=== PATIENT | male | born 1965 | race Caucasian/White ===

== ENCOUNTER → 2016-08-27 | Outpatient (CLI) | payer BC | END | disposition home or self-care (01) | LOC: C.LABPBG 10:56 | PROVIDERS: ATTEND Urology | DX: N40.1 Benign prostatic hyperplasia with lower urinary tract symptoms (principal); R35.0 Frequency of micturition; R39.198 Other difficulties with micturition ==

== ENCOUNTER 2024-04-21 08:31 | Observation (INO) ==
--- NOTE | 2024-03-22 11:46 | PAT Medication Instructions ---
Medication Instructions Date of Service March 22, 2024 Home Medications tamsulosin 0.4 mg capsule (Flomax) 0.4 mg PO QPM diltiazem HCl 120 mg tablet 120 mg PO QAM buspirone 15 mg tablet 15 mg PO QAM multivitamin 1 tab PO QAM DO NOT take the morning of surgery multivitamin 1 tab PO QAM Take morning of surgery With a small sip of water, OTHERWISE NOTHING TO EAT OR DRINK AFTER MIDNIGHT: diltiazem HCl 120 mg tablet 120 mg PO QAM buspirone 15 mg tablet 15 mg PO QAM Take evening before surgery tamsulosin 0.4 mg capsule (Flomax) 0.4 mg PO QPM Other Notes If you have any questions please call us at [phone] or [phone] or [phone] or [phone]
--- NOTE | 2024-03-28 09:39 | Anesthesiology Consultation ---
Date of Service March 28, 2024 Assessment & Plan (1) Encounter for pre-operative examination: - Outpatient joint assessment: Patient is currently scheduled for inpatient pathway. If re-evaluated and patient/surgeon requests outpatient pathway, patient is acceptable candidate for outpatient joint program from anesthesia standpoint pending surgeon's office assessment of pt motivation/support/completion of same day joint program preop requirements. Chart Review Chart Review: Acceptable Risk for Surgery and Patient seen in Pre Admission Testing Teaching & Discussion Pre-Anesthesia Teaching/Discussion Notes: Instructed NPO after midnight before surgery, except medications with 15 cc of water. Medication instructions provided according to the PAT guidelines. History Surgery Operation Date: 04/21/24 07:00 Proposed Procedures p Left Total Knee Arthroplasty - Rosales Godoy MD Height/Weight Height: 5 ft 11 in Weight: 118.1 kg Allergies Allergy/AdvReac Type Severity Reaction Status Date / Time No Known Allergies Allergy Verified 03/24/24 09:29 Medications Home Medications Medication Instructions Recorded Confirmed Last Taken diltiazem HCl 120 mg tablet 120 mg PO QAM 10/29/23 03/24/24 03/24/24 07:00 buspirone 15 mg tablet 15 mg PO QAM 03/20/24 03/24/24 03/23/24 08:00 multivitamin 1 tab PO QAM 03/20/24 03/24/24 03/18/24 ciprofloxacin HCl 500 mg tablet 500 mg PO BID #6 tabs 03/24/24 Unknown (Cipro) Past Medical History Medical History (Updated 03/28/24 @ 09:44 by Dhara Page PA-C) Anxiety Benign localized prostatic hyperplasia with lower urinary tract symptoms (LUTS) Dyslipidemia Hx, no recent issues per patient Hypertension controlled, stable per pt Left knee DJD Sleep apnea CPAP-compliant Urinary frequency Urinary stream slowing Patient denies h/o stroke, seizures, heart attack, heart failure, DM, blood clots/DVTs or blood transfusions. Exercise / Class Metabolic Activity II 4-5 Yardwork/Stairs/Walk up hill (denies chest discomfort or shortness of breath with one flight of stairs) Past Family History Family History Other No pertinent family history Past Surgical History Surgical History (Updated 03/28/24 @ 09:45 by Dhara Page PA-C) History of esophagogastroduodenoscopy (EGD) History of general anesthesia 2 days after a colonoscopy "had something bleeding and had to go back to hospital and had to go under general anesthesia for another colonoscopy to repair the bleeding" History of transurethral resection of prostate Hx of colonoscopy Nausea after anesthesia following general anesthesia for a colonoscopy Tika with surgeon's office advised urinary catheter is not needed per Dr. Godoy, he is aware of recent TURP. Past Anesthesia History No Hx of Anesthesia Complications and No Family Hx of Anesthesia Complications History of PONV History of PONV and Hx of Motion Sickness Social History Smoking Status: Never smoker Do You Dip or Chew Tobacco: No (quit 2013; advised) Hx Alcohol Use: Yes Alcohol type: beer alcohol intake frequency: a few times a week Hx Substance Use: No substance use type: does not use Review of Systems Patient denies chest pain, shortness of breath, dyspnea on exertion, reflux, fever, chills, cough, wheezing, or palpitations. Physical Exam Vital Signs Vitals BP 149/84 P 61 TEMP 98.5 SP02 95% on RA RESP 18 Physical Patient resting comfortably in chair in no acute distress, alert and oriented, responding appropriately throughout visit Full cervical extension range of motion without pain TMD 3.5 finger breadths Mallampati Score 3 Dentition: intact, denies chipped or loose teeth, caps/crowns, implants or bridges Lungs: normal respiratory effort. Good air movement, clear throughout to auscultation, no adventitious breath sounds Cardiac: regular rate and rhythm, no murmurs noted Carotid arteries: negative bruit bilat Lab Results Anesthesia Preop Results Results Anesthesia Widget: WBC 6.08 K/ul (4.8-10.8) 03/01/24 Hgb 14.1 g/dl (14.0-18.0) 03/01/24 Hct 41.1 % (42.0-52.0) L 03/01/24 Plt 181 K/uL (130-400) 03/01/24 Na 138 mmol/L (136-145) 03/01/24 K 4.3 mmol/L (3.5-5.1) 03/01/24 Cl 105 mmol/L (98-107) 03/01/24 CO2 29 mmol/L (21-32) 03/01/24 BUN 17 mg/dl (6-23) 03/01/24 Creat 0.83 mg/dl (0.6-1.4) 03/01/24 Glucose Level 94 mg/dl (70-99(Fasting)) 03/01/24 PT 11.9 Seconds (9.0-12.0) 03/28/24 PTT 26 Seconds (21-31) 03/28/24 INR 1.1 (0.9-1.1) 03/28/24 Blood Type AB Positive 03/28/24 Antibody Screen NEGATIVE 03/28/24 Testing Electrocardiogram Date: 03/01/24 Sinus bradycardia with occasional premature ventricular complexes, rate 51 bpm Incomplete RBBB Chest X-Ray Date: 03/01/24 Cardiomegaly with no active disease in the chest. Stress Test Date: 07/21/19 Negative for inducible ischemia Moderate cLVH EF 60-65% Grade 2 diastolic dysfunction No significant valvular pathology
--- NOTE | 2024-04-15 09:42 | History & Physical Report ---
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 Is failed conservative measures. He would like to proceed with definitive treatment/knee replacement. Plan: We are going to plan on taking him to the operating room do a left total knee replacement. The risks and benefits of this procedure explained and he understands. Informed consent was obtained. He has had some prostate issues recently. Will just check and make sure that is all cleared up. We will avoid using a Mack catheter but we will likely make sure he is on Flomax. He is plan willy to be discharged to home with some home health. History of Present Illness Chief Complaint: . Persistent left knee pain, discomfort, and swelling. Primary Care Provider: Rosales Jordan . 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 He has a several year history of increasing left knee pain discomfort that he dates back to an episode when he fell from a ladder. He twisted his knee at that time and has had persistent pain discomfort ever since. Is been to extensive conservative treatment including aspiration and injections which only helped for couple days. Is become more debilitated by his pain. He would like to have his left knee fixed. Allergies Allergy/AdvReac Type Severity Reaction Status Date / Time No Known Allergies Allergy Verified 03/24/24 09:29 Home Medications Medication Instructions Recorded Confirmed Type diltiazem HCl 120 mg tablet 120 mg PO QAM 10/29/23 03/24/24 History buspirone 15 mg tablet 15 mg PO QAM 03/20/24 03/24/24 History multivitamin 1 tab PO QAM 03/20/24 03/24/24 History ciprofloxacin HCl 500 mg tablet 500 mg PO BID #6 tabs 03/24/24 Rx (Cipro) Past Med/Surg History Problem List Encounter for pre-operative examination Effusion, left knee Inguinal hernia (Acute) Medical History Benign localized prostatic hyperplasia with lower urinary tract symptoms (LUTS) Left knee DJD Urinary frequency Urinary stream slowing Sleep apnea CPAP-compliant Anxiety Hypertension controlled, stable per pt Dyslipidemia Hx, no recent issues per patient Surgical History History of transurethral resection of prostate Nausea after anesthesia following general anesthesia for a colonoscopy History of general anesthesia 2 days after a colonoscopy "had something bleeding and had to go back to hospital and had to go under general anesthesia for another colonoscopy to repair the bleeding" History of esophagogastroduodenoscopy (EGD) Hx of colonoscopy Family History Other No pertinent family history Social History Smoking Status: Never smoker Tobacco Type: Smokeless Tobacco (Dip or Chew) Second Hand Exposure: No; Do You Dip or Chew Tobacco: No (quit 2013; advised); Hx Alcohol Use: Yes Alcohol type: beer Hx Substance Use: No Preferred Language: Prydeinig Communication Ability: Effective Press Reader Required: No Beliefs That Will Affect Care: None marital status: Current Living Situation: Spouse current occupational status: retired Feels Safe at Home: Yes Assistive Devices: CPAP and Glasses Review of Systems All systems reviewed & are unremarkable except as noted in HPI & below. Physical Exam . Physical examination reveals a fairly large middle-age male. Examination of the knee reveals the patient ambulates with just a slight of a limp he is got varus alignment to his knee. Moderate to large knee joint effusion. Range of motion is 5-1 20. No instability. No particular pain with hip motion. Constitutional WD/WN, vitals as above Respiratory normal respiratory effort, lungs clear to auscultation Cardiovascular RRR, no murmur, no edema Gastrointestinal (Abdomen) normal bowel sounds, soft, nontender, no hepatosplenomegaly Results & Data Results & Data Laboratory Results . Diagnostic Findings . X-rays of the left knee was reviewed. She has advanced left knee DJD. Got complete loss of his medial joint space. Got moderate patellofemoral disease. Fairly large knee joint effusion. PG Care Time/CCT Total # of Minutes Spent Total Time Spent with Patient: Total time spent is greater than 50% in coordination of care (as documented) at patient's floor/unit and/or counseling patient: Coding Level of Care Code None Diagnoses Effusion, left knee M25.462 Encounter for pre-operative examination Z01.818 Left knee DJD M17.12
[~2024-04-21 08:31] MED LIST: BUPIVACAINE 0.5 % 5 MG/1 ML PF 10ML VIAL ONE; ROPIVACAINE 0.5% 5 MG/ML 30 ML VIAL ONE
--- NOTE | 2024-04-21 08:46 | History & Physical Bridge Note ---
Date of Service April 21, 2024 History & Physical Bridge Note I have examined the patient, reviewed the History & Physical and in the interval since the performance of the History & Physical I have noted the following changes of clinical significance: no changes noted
[2024-04-21] MEDS: CeleBREX 200 MG CAP PO SCH (09:07)
[2024-04-21] MEDS: LR 60ML/HR IV SCH (09:07)
[2024-04-21] MEDS: FAMOTIDINE 20 MG TAB PO SCH (09:07)
[2024-04-21] MEDS: ACETAMINOPHEN 500 MG TAB PO SCH ×2 (09:07→17:03)
[2024-04-21] MEDS: METOCLOPRAMIDE HCL 10 MG TABLET PO SCH (09:07)
[2024-04-21] MEDS: LR 500ML BOLUS, THEN 15ML/HR IV SCH (09:27)
[2024-04-21] MEDS ORDERED: MIDAZOLAM HCL 1 MG/ML 2ML VIAL ONE (09:40)
[2024-04-21] MEDS ORDERED: ALBUMIN HUMAN 5% 12.5 GM/250 ML VIAL IV ONE (09:51)
[2024-04-21] MEDS ORDERED: ONDANSETRON INJ 2 MG/ML 2 ML VIAL IV PRN (10:19)
[2024-04-21] MEDS ORDERED: fentaNYL citrate PF 100 MCG/2 ML VIAL IV PRN (10:19)
[2024-04-21] MEDS ORDERED: PROMETHAZINE HCL 6.25 MG in SODIUM CHLORIDE 0.9% 50 ML IV PRN (10:19)
[2024-04-21] MEDS ORDERED: HYDROmorphone INJ 2 MG/ML SYR/VIAL IV PRN (10:19)
[2024-04-21] MEDS ORDERED: ePHEDrine sulfate 50 MG/ML AMP IV PRN (10:19)
[2024-04-21] MEDS ORDERED: ATROPINE SULFATE 0.1 MG/ML 10ML SYR IV PRN (10:19)
[2024-04-21] MEDS ORDERED: ONDANSETRON INJ 2 MG/ML 2 ML VIAL ONE (10:27)
[2024-04-21] MEDS ORDERED: KETAMINE HCL 10MG/ML SYR ONE (10:28)
[2024-04-21] MEDS: ceFAZolin 2000MG 2,000 MG/15 ML SYR IV SCH ×2 (10:46→18:09)
[2024-04-21] MEDS ORDERED: GLYCOPYRROLATE 0.2 MG/ML VIAL ONE (11:19)
[2024-04-21] MEDS ORDERED: PROPOFOL IV EMULSION 10 MG/ML 100 ML VIAL IV ONE ×4 (11:21→12:05)
[2024-04-21] MEDS: TRANEXAMIC ACID 1,000 MG **IV Intra-op IV SCH (11:38)
[2024-04-21] MEDS: ROPIV 0.5% 246mg, Ketorolac 30mg, EPINEPHrine 0.5mg in NSS INFIL SCH (11:40)
[2024-04-21] MEDS: ORTHO JOINT ANESTHETIC ONE (11:41)
--- NOTE | 2024-04-21 12:43 | Operative Report ---
PG Post Operative Report Pre & Post Diagnosis Operation Date: 04/21/24 10:40 Pre-Op Diagnosis: Left Knee Osteoarthritis Post-Op Diagnosis: Left Knee Osteoarthritis I identified the patient and participated in the time-out.: Yes Procedure Operation Date: 04/21/24 10:40 Actual Procedures p Left Total Knee Arthroplasty(Left) - Rosales Godoy MD Surgeon Rosales Godoy MD [place] Tender Akil Albright PA-C Estimated Blood Loss 50 Findings Consistent with Post-Op Diagnosis Operative findings were advanced left knee DJD. He had pretty extensive grade 4 [id number] disease and eburnation of the medial and patellofemoral compartments. Varus deformity to his knee. Moderate to large knee joint effusion. Specimens Left knee sent for pathology. Anesthesia Type Spinal MAC Complications none Disposition Accompanied Patient To Recovery: No Indications The patient is a 58-year-old fairly active gentleman whose had several year history of increasing left knee pain discomfort describes gotten worse over time. He has been through extensive conservative measures which became less successful over time. X-rays show advanced left knee DJD. He elected to proceed with total knee arthroplasty. Description of Procedure Operative implants consists of: 1 Biomet Vanguard size 72.5 left posterior stabilized femoral component. 2. Biomet size 79 tibial tray. 3. 12 mm posterior stabilized polyethylene insert. 4. 34 x 8-1/2 all poly patella. The patient was taken to the operating, identified, placed on the operating table in the supine position. All contact areas were appropriately padded. IV antibiotics tried by anesthesia team. A spinal anesthetic and adductor canal block had been provided in the holding area. A left thigh turn was then placed. Left lower extremity was then prepped and draped in usual sterile fashion. The left leg was elevated and exsanguinated with use of an Esmarch and the tourniquet was placed at 300 mmHg. An anterior approach to the left knee was then performed to longitudinal incision centered over the patella. Sharp dissection was carried through subcutaneous tissue down the extensor mechanism. A medial parapatellar arthrotomy incision was made. Some subperiosteal dissection was carried out medially. The fat pad was resected from Neath patella tendon. The lateral patellofemoral ligament was released. Patella dodd bluxated laterally and the knee was flexed. The osteophytes taken off distal femur. The ACL and PCL were then released from distal femur the tibia subluxated anteriorly. The external tibial alignment jig was then placed on the anterior face the tibia and adjusted 14 mm medially. The proximal tibial cut was made remove about 2 mm of bone from the medial side. The tibia sized to a size 79. Attention was then drawn to the femur. The distal femur was entered with a sharp drill. Intramedullary canal was suction. A left 6 degree valgus cutting guide was placed. The distal femoral cutting block was pinned in place. Distal femoral cut was made take an additional 3 mm of bone off distal femur. The femur was then sized to a size 72.5. The AP cutting block was pinned parallel to the epicondylar axis which was 4 degrees of external rotation. The anterior cut, anterior chamfer, posterior cut, posterior chamfer cuts were made. The box cutting guide was placed in the just slightly laterally. The box cut was made. The knee was flexed. The remnants of the medial and lateral menisci were excised. The osteophytes taken off the posterior aspect the femur. A trial femoral component was placed. The tibial tray was pinned Marisela external rotation and the drill and stem punch use great defect in proximal tibia for the tibial tray. The knee was then trialed and the 12 mm insert fit most appropriately. Attention drawn the patella. The patella was cleaned of all soft tissues. Patella thickness measured 26 mm in thickness and was cut down to 15. Was sized to a size 34 patella. The lug holes were drilled for the 34 patella. The lateral osteophytes removed. Patella button was placed. Knee was taken through range of motion patella tracked nicely with no thumbs test. Attention was then drawn toward placing the permanent components. All trial components were removed. Bone plug was placed into this femur limit blood loss. Double batch Palacos G cement was mixed. A Biomet Vanguard size 72.5 left posterior Byce femoral component, size 79 tibial tray, a 12 mm posterior stabilized polyethylene insert, and a 34 x 8 and half all poly patella then cemented in place. The knee was brought out into full extension till cement hardened. Final cement check was then performed. The pericapsular tissues were injected with total 100 cc of Ortho mix. Patient did receive 1 g tranexamic acid. The tourniquet was then let down for final tourniquet time of 57 minutes. Hemostasis assured use electrocautery. Extensor Metros then closed with combination 1 PDS suture #1 Vicryl suture in a [id number] fashion. Extensor Meclomen checked found to be intact with the subcutaneous tissue then closed with 2 Dexon suture in a buried interrupted fashion skin was closed skin char. Leg was then cleaned and dried and a sterile dressing with Xeroform, 4 fours, sterile cast padding and an Javier bandage were applied. The patient then transferred to the recovery room in stable condition. Patient tolerated the procedure well and there were no complications. Akil Albright, my physician assistant refinery operator, was present for the entire procedure. His assistance was essential and required for appropriate patient positioning, prepping and draping, surgical exposure, performing the technical details of the operation, placement the implants, closure of the wound, and placement of the sterile bandage. I attest to the content of the Intraoperative Record and any orders documented therein. Any exceptions are noted below.
--- NOTE | 2024-04-21 13:09 | XRay Report ---
XR knee LT 1 or 2V routine HISTORY: 58 years-old Male Surgical Post Op left knee arthroplasty COMPARISON: 10/29/2023 TECHNIQUE: 2 views of the left knee FINDINGS: Total joint arthroplasty with patellar resurfacing. Anterior midline skin char are present along w ith expected postoperative soft tissue swelling with deep tissue air. No acute fracture or radiopaque foreign body. IMPRESSION: Satisfactory alignment of the total joint arthroplasty. ACT 112: Negative or not required by law. The above report was generated using voice recognition software. It may contain grammatical, syntax o r spelling errors. Electronically signed by: Donaldo Dang M.D. 04/21/2024 1:07 PM
[2024-04-21] MEDS ORDERED: diphenhydrAMINE Capsule 25 MG CAP PO PRN (13:41)
[2024-04-21] MEDS ORDERED: NALOXONE HCL 0.4 MG/1 ML VIAL/CARP IV PRN (13:41)
[2024-04-21] MEDS ORDERED: HYDROmorphone INJ 0.5 MG/0.5 ML SYR IV PRN (13:41)
[2024-04-21] MEDS ORDERED: MAGNESIUM HYDROXIDE SUSP 30 ML UDC PO PRN (13:41)
[2024-04-21] MEDS ORDERED: bisacodyL 10 MG SUPP PR PRN (13:41)
[2024-04-21] MEDS ORDERED: ALUMINUM/MAGNESIUM SUSP 30 ML UDC PO PRN (13:41)
[2024-04-21] MEDS ORDERED: Nursing to Pharmacy Communication SCH (14:00)
[2024-04-21] MEDS: KETOROLAC 30 MG/ML VIAL IV SCH (14:28)
[2024-04-21] MEDS: TAMSULOSIN HCL 0.4 MG CAP PO SCH (14:53)
--- NOTE | 2024-04-21 15:20 | Anesthesiology Progress Note ---
Date of Service April 21, 2024 Anesthesia Post Procedure Vital Signs Vital Signs: Temp Pulse Pulse Pulse Resp BP Pulse Ox 04/21/24 15:07 04/21/24 14:31 36.4 C L 58 L 16 176/91 H 94 04/21/24 14:00 36.5 C 59 L 16 152/80 H 100 04/21/24 13:34 36.4 C L 62 16 163/75 H 100 04/21/24 13:10 36.5 C 65 21 146/78 H 100 04/21/24 13:00 69 15 151/78 H 100 04/21/24 12:50 73 21 118/75 98 04/21/24 12:40 79 19 125/70 96 04/21/24 12:34 36.1 C L 85 20 121/69 96 04/21/24 10:04 64 20 146/83 H 95 04/21/24 08:45 36.5 C 69 20 189/93 H 100 O2 Del Method O2 Flow Rate 04/21/24 15:07 Room Air 04/21/24 14:31 Room Air 04/21/24 14:00 Nasal Cannula 2 04/21/24 13:34 Nasal Cannula 2 04/21/24 13:10 Nasal Cannula 2 04/21/24 13:00 Nasal Cannula 2 04/21/24 12:50 Nasal Cannula 2 04/21/24 12:40 Oxymask 4 04/21/24 12:34 Oxymask 4 04/21/24 10:04 Room Air 04/21/24 08:45 Room Air Pain Intensity Left Knee: Pain Intensity: 3 Transfer of Care Handoff Completed per policy Notes Mental Status: alert / awake / arousable and participated in evaluation Nausea / Vomiting: adequately controlled Pain: adequately controlled Airway Patency, RR, SpO2: stable & adequate BP & HR: stable & adequate Hydration State: stable & adequate Neuraxial Anesthesia: was administered and sensory block is resolving Anesthetic Complications: no major complications apparent and Pt Satisfied with anesthetic care
[2024-04-21] MEDS: ASCORBIC ACID 500 MG TAB PO SCH (17:04)
[2024-04-21] MEDS: TRANEXAMIC ACID / 0.7% NACL 1,000 MG/100 ML BAG IV SCH (18:08)
[2024-04-21] MEDS: oxyCODONE HCL IR 5 MG TAB (IMMEDIATE RELEASE) PO PRN (20:12)
[2024-04-21] MEDS: ASPIRIN 81 MG ECTAB PO SCH (20:12)
[2024-04-21] MEDS: DOCUSATE SODIUM 100 MG CAP PO SCH (20:12)
[2024-04-21] MEDS: CIPROFLOXACIN 500 MG TAB PO SCH (20:12)
[2024-04-21] MEDS: SENNA 8.6 MG TAB PO SCH (20:13)
[2024-04-21] MEDS ORDERED: SENNA 8.6 MG TAB PO SCH (21:00)
[2024-04-21] MEDS: ONDANSETRON INJ 2 MG/ML 2 ML VIAL IV PRN (22:31)
[2024-04-22] MEDS: METOCLOPRAMIDE HCL INJ 5 MG/ML 2 ML VIAL IV PRN (01:19)
[2024-04-22 06:05] LABS: Hematocrit (blood only) 35.6 % (42.0-52.0); Hemoglobin 12.2 g/dl (14.0-18.0); Mean Corpuscular Hemoglobin 29.8 pg (25.0-34.0); Mean Corpuscular Hgb Conc 34.3 g/dL (32.0-36.0); Mean Platelet Volume 11.2 fL (9.4-12.4); Platelet Count 157 K/uL (130-400); RDW Coefficient of Variation 12.5 % (11.5-14.5); Red Blood Count 4.09 M/uL (4.70-6.10); White Blood Count 9.95 K/ul (4.8-10.8)
[2024-04-22 06:23] LABS: BUN Creatinine Ratio 20.2 (10-20); Calcium 8.7 mg/dl (8.6-10.3); Creatinine Clr Calc Pharmacy 110.8 ml/min; Potassium 4.1 mmol/L (3.5-5.1)
--- NOTE | 2024-04-22 07:36 | Orthopedic Progress Note ---
Date of Service April 22, 2024 Assessment & Plan (1) Status post left knee replacement: Plan: 58-year-old gentleman postop day 1 from a left knee replacement doing pretty well. His pain is controlled. He is neurologically intact. He is pretty hesitant and apprehensive about the whole process but get along okay this morning. Plan: 1. DVT prophylaxis including thigh-high teds, SCDs, aspirin twice a day. 2. PT/OT. Weight-bear as taught. Left total knee protocol. 3. Pain control. Doing okay with current pain regimen. 4. Disposition. Plan is to discharge home with some home health if he does okay in therapy today. Admission and Anticipated Discharge Date Admission Date: April 21, 2024 Subjective 58-year-old gentleman postop day 1 from a left knee replacement. He is doing pretty well. He says his knee is pretty sore meds about it. No chest pain or shortness of breath. A reasonable night. He has been pretty apprehensive through the whole process. No chest pain or shortness of breath. Not feeling dizzy or lightheaded. Physical Exam Physical Exam: Physical examination of the left leg reveals the leg to be well aligned. His dressings clean dry and intact. There is no drainage. Can dorsiflex and planta rflex his foot appropriately. He is neurologically intact. Respiratory: normal respiratory effort, lungs clear to auscultation Cardiovascular: RRR, no murmur, no edema Gastrointestinal (Abdomen): normal bowel sounds, soft, nontender, no hepatosplenomegaly Results & Data Vital Signs (Past 12 Hours) Vital Signs Temp Pulse Resp BP BP Pulse Ox O2 Del Method 04/22/24 07:26 36.8 C 68 17 189/71 H 96 Room Air 04/22/24 03:34 36.7 C 71 18 148/82 H 99 Room Air 04/21/24 20:23 36.6 C 57 L 16 154/82 H 95 Room Air Laboratory Results Hemoglobin is 12.2. Hematocrit 35.6. Electrolytes are stable.
[2024-04-22] MEDS: busPIRone 15 MG TAB PO SCH (08:14)
[2024-04-22] MEDS: dilTIAZem HCL 120 MG CAPCR PO SCH (08:15)
[2024-04-22] MEDS: dexAMETHasone 10 MG in SYRINGE 0 ML IV SCH (08:16)
[2024-04-22] MEDS ORDERED: TAMSULOSIN HCL 0.4 MG CAP PO SCH (09:00)
[2024-04-22] MEDS ORDERED: MULTIVITAMIN TAB PO SCH (09:00)
[2024-04-22] MEDS ORDERED: NON-FORMULARY MEDICATION (Multivitamin Tablet) PO SCH (09:00)
--- NOTE | 2024-04-25 07:57 | Discharge Summary ---
Date of Service April 25, 2024 Admission HPI (Per Admitting) . 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 He has a several year history of increasing left knee pain discomfort that he dates back to an episode when he fell from a ladder. He twisted his knee at that time and has had persistent pain discomfort ever since. Is been to extensive conservative treatment including aspiration and injections which only helped for couple days. Is b ecome more debilitated by his pain. He would like to have his left knee fixed. Admission Exam (Per Admitting) . Physical examination reveals a fairly large middle-age male. Examination of the knee reveals the patient ambulates with just a slight of a limp he is got varus alignment to his knee. Moderate to large knee joint effusion. Range of motion is 5-1 20. No instability. No particular pain with hip motion. Principal Diagnosis Same as "Discharge Diagnosis" noted below under Discharge Instructions. Discharge Data Procedures Performed Operation Date: 04/21/24 10:40 Actual Procedures p Left Total Knee Arthroplasty(Left) - Rosales Godoy MD Ordered Studies 04/21/24 05:00 US - OR guided needle placemen Routine Hospital Course (1) Status post left knee replacement: This is a 58 year old patient admitted on 04/21/24 and underwent total knee a rthroplasty. He tolerated the procedure well and there were no complications. Transferred to the PACU post op and later to the orthopedic floor for further care. He was given ancef for antibiotic prophylaxis. He was also given GARETT stockings, SCDs, and aspirin for DVT prophylaxis. Hemoglobin, hematocrit, and vital signs were monitored during his hospital stay and remained stable. Did not require any blood transfusions. There were no complications during his hospital stay. By post op day #1 the patient was tolerating a regular diet, pain was reasonably controlled with oral pain medicine, and he was participating in physical therapy. On post op day #1 the patient was discharged home and set up with home health care. He was given printed discharge instructions including prescriptions for extra strength tylenol, aspirin, cefadroxil, ketorolac, zofran, senokot, flomax, and oxycodone. Continue physical therapy, weight bearing as tolerated. Continue GARETT stockings. Follow up approximately 2 weeks post op or sooner if there are problems or concerns. PG Care Time/CCT Total # of Minutes Spent Total Time Spent with Patient: : Discharge Plan Discharge Items Patient Disposition: Home - Home Health Services Reason For Visit: Left Knee Osteoarthritis Discharge Diagnosis: Left Knee Replacement Activity: Per Instructions section Non-emergency contact: Surgeon Call non-emergency contact if: you have any medication questions Follow-up/Referrals: Rosales Jordan [Primary Care Provider] - Diet: Regular Addtl Attending Provider Instructions: ACTIVITY RECOMMENDATIONS: Diet: * You may resume previous diet. Physical Therapy: * You will go to physical therapy three times each week for four to six weeks after your surgery in order to regain your knee range of motion and to retrain your knee to work properly. * It is just as important to make sure you are getting your knee perfectly straight as it is to regain your knee bend. * Taking a pain pill an hour before therapy can help you have a more productive and comfortable therapy session. Home Exercise: * You were shown a series of exercises (heel props, heel slides, etc.) in the hospital. Do these exercises three to four times each day including the exercises you were shown in physical therapy. Walking: * Get up and walk several times each day. For the first four weeks, try not to stand or walk for more than one hour at a time. If you do stand or walk for more than one hour, you will not hurt anything, but your knee and leg will likely swell. * As you feel comfortable, you may change from the walker or crutches to a cane and then to independent walking. MEDICATIONS: New Medicine: * You will likely be taking one or more of these medications: 1. Oxycodone - A quick and shorter-acting pain medication. Take one to two tablets every six hours to lessen your pain. 2. Aspirin - Thins your blood to lessen the chance of forming a blood clot. * The most common side effects of pain medicine and iron are nausea and constipation. If nausea or constipation is too much of a problem or if you have any questions about your new medicines or doses, call [facility] at . We will try to help you manage these issues. "VERY IMPORTANT TO READ AND REVIEW" Pain: * The immediate post-operative period after knee replacement surgery is often quite painful. * You are given a prescription for pain medicine. You should take it, as directed, when you need it, especially before physical therapy and before going to bed. Pain that interferes with sleep is very common and can last several months. * You will likely need pain medicine for the first four to six weeks. It will not stop all of the pain. The pain will lessen and as you feel better, you may change to milder pain medicine such as Tylenol. * The most common side effects of pain medicine are nausea and constipation, so don't take more than you need. SPECIAL CARE INSTRUCTIONS: TEDs/Elastic Stockings: * The white elastic stockings help limit swelling and prevent blood clots from forming in your legs. The more you wear them, the more they work. * Wear them for six weeks after knee replacement surgery and four weeks after partial knee replacement. Incision Site Care: * Remove dressing postoperative day 2 and then shower. Keep direct shower pressure off the incision site. * After showering, cover char with dry gauze and change daily or more frequently if the dressing is getting saturated with drainage. * Use the GARETT stockings to hold dressing in place. DO NOT apply tape on the skin. * May completely stop using bandage if wound is dry and no drainage * Neponset are removed between 2 and 3 weeks post-op. If your follow-up appointment is made before 2 weeks, please have your appointment re- scheduled. It is too early to remove the char. Prevention of Infection: * Take antibiotics one hour before any dental cleaning, dental work, urological procedure, gastrointestinal procedure or any invasive surgery in order to prevent your new joint from getting infected. * You may get the antibiotics from the doctor performing the procedure or you may call our office at [phone] before and we will call in a prescription to the pharmacy of your choice. Things to Watch For: * Drainage from the incision site that occurs more than one week after your surgery. * Severely increased knee/leg pain or swelling. * Increased redness at the incision site. * Fever above 102 degrees Fahrenheit. * Unusual chest pain or shortness of breath. * Unusual pain or burning with urination. Call [facility] at [phone] with any of the above problems or if you have any questions about your medicines or recovery. FOLLOW UP VISIT: Make an appointment to see your doctor for approximately two weeks after surgery for a progress check and staple removal by calling the office at [phone]. Pending Studies at Discharge: No Stand-Alone Forms: My [facility], Smoking Cessation Medications and DC Order Prescriptions: Continued oxycodone 5 mg tablet 5 - 10 mg PO Q6 PRN (Reason: pain) Qty: 40 0RF Rx Instructions: Take as needed for pain ondansetron 4 mg tablet,disintegrating 4 mg PO Q8 PRN (Reason: nausea) Qty: 20 1RF Rx Instructions: Take as needed for nausea ketorolac 10 mg tablet 10 mg PO Q6 5 Days Qty: 20 0RF Rx Instructions: Take 4 times per day with food for 5 days to lessen pain and swelling. sennosides [Senokot] 8.6 mg tablet 8.6 mg PO BID 14 Days Qty: 28 0RF Rx Instructions: Take two times a day to prevent/treat constipation acetaminophen [Tylenol Extra Strength] 500 mg tablet 1,000 mg PO TID 30 Days Qty: 180 0RF Rx Instructions: Take 3 times per day to lessen pain. aspirin [Coco Low Dose Aspirin] 81 mg tablet,delayed release (DR/EC) 81 mg PO BID 45 Days Qty: 90 0RF tamsulosin [Flomax] 0.4 mg capsule 0.4 mg PO DAILY Qty: 7 0RF Rx Instructions: Begin night BEFORE surgery to prevent urinary retention cefadroxil 500 mg capsule 500 mg PO BID 7 Days Qty: 14 0RF Rx Instructions: Take 1 cap twice a day to prevent infection diltiazem HCl 120 mg tablet 120 mg PO QAM multivitamin Tablet 1 tab PO QAM buspirone 15 mg Tablet 15 mg PO QAM ciprofloxacin HCl [Cipro] 500 mg tablet 500 mg PO BID Qty: 6 0RF Admission Data Admit Date/Time: 04/21/24 12:36 Attending Provider: Rosales Godoy Admit Provider: Rosales Godoy Primary Care Provider: Rosales Jordan Other Providers: [facility] Other Interventions: Discharge Summary Assessment (RN) Last Done: 04/22/24 09:11
== END 2024-04-22 10:26 | disposition home health service (06) ==
LOC: ASU 08:31 → 3E 08:31